=== PATIENT | male | born 1960 | race Caucasian/White ===

== ENCOUNTER → 2021-03-11 | Outpatient (CLI) | payer OTHER ==
[~2021-03-11] MED LIST: ADVAIR 250-501 EACH INH; CARAFATE1 GM PO; CRESTOR10 MG PO; FIBER500 MG PO; FISH OIL 1,0001 EAC9 PO; FLONASE 0.05%50 MCG NARES; GAVISCON ES CH1 EAC1 PO; MULTI VITAMIN1 EACH PO; NEXIUM 40 MG CA40 M1 PO; PEPCID20 MG PO
== END | disposition home or self-care (01) ==
LOC: GI 08:38
PROVIDERS: ATTEND Internal Medicine Gastroenterology
DX: K21.9 Gastro-esophageal reflux disease without esophagitis (principal); Z20.822 Contact with and (suspected) exposure to COVID-19; Z79.899 Other long term (current) drug therapy

== ENCOUNTER → 2021-03-22 | Outpatient (CLI) | payer OTHER ==
[~2021-03-22] VITALS: Ht 182.9 cm; Wt 68.0 kg
--- NOTE | 2021-03-25 13:08 | PATH ---
[facility] [address] [place] [address] PATHOLOGY RPT PROCEDURE Name: WENDYERIC Room #: REG BERNADETTE Jah#: [id number] Admission: 03/22/21 Date of : 58 Discharge: Report #: [id number] Path Case #: [id number] [facility] Accession Number: [id number] . 01 Material submitted: . esophagus - RANDOM ESOPHAGEAL BIOPSY- R/O EOSINOPHILIC ESOPHAGITIS . 01 Clinical history: . ESOPHAGOGASTRODUODENOSCOPY GERD HIATAL HERNIA . 02 Diagnosis: Squamous mucosa (random biopsies esophagus): - Mild chronic esophagitis negative for eosinophilic esophagitis. (ARASELIK/db; 03/23/2021) [facility] 03/23/2021 1356 Local . 02 Electronically signed: . Ld Ryan MD, Pathologist NPI- [id number] . 01 Gross description: . The specimen is received in formalin, labeled "Eric Nguyen, random esophageal BX rule out EOE". Received are 4 segments of pale roper tissue ranging in size from 0.3 to 0.4 cm in maximum dimensions. The specimen is submitted entirely in cassette A1.([facility]; 03/22/2021) [facility] 03/22/2021 1657 Local . 02 Pathologist provided ICD-10: K20.90 . 02 CPT . 654964 Specimen Comment: A courtesy copy of this report has been sent to [phone] Specimen Comment: [id number] Specimen Comment: Report sent to / DR LOUIS Specimen Comment: A duplicate report has been generated due to demographic updates. Performed at: 01 [facility] [address] [place] [address] [id number] MD Simba Lieberman MD Phone: [phone] Performed at: [address] [id number] [place] [address] PATHOLOGY RPT PROCEDURE Name: ERIC NGUYEN Room #: REG BERNADETTE Tyson#: [id number] Admission: 03/22/21 Date of : 58 Discharge: Report #: [id number] Path Case #: [id number] MD Ld Ryan MD Phone: [phone]
== END | disposition home or self-care (01) ==
LOC: GI 07:06
PROVIDERS: ATTEND Internal Medicine Gastroenterology
DX: R13.10 Dysphagia, unspecified (principal); K21.00 Gastro-esophageal reflux disease with esophagitis, without bleeding; K44.9 Diaphragmatic hernia without obstruction or gangrene; E78.5 Hyperlipidemia, unspecified; R12 Heartburn; J45.909 Unspecified asthma, uncomplicated; Z98.890 Other specified postprocedural states; Z79.899 Other long term (current) drug therapy; Z20.822 Contact with and (suspected) exposure to COVID-19; Z85.828 Personal history of other malignant neoplasm of skin
CPT/HCPCS: 62110; 62900